=== PATIENT | female | born 1945 | race Caucasian/White ===

== ENCOUNTER 2021-06-16 13:01 | Outpatient (REF) | payer OTHER, SELFPAY ==
--- NOTE | ~2021-06-16 | XR_ITS ---
EXAMINATION: XR FINGER, LEFT CLINICAL INFORMATION: Crush injury to the thumb. COMPARISON: None TECHNIQUE: 3 views of the left hand first digit. FINDINGS: A curvilinear lucency is seen in the distal aspect of the proximal phalanx of the first digit with extension into the distal interphalangeal joint space. Mild degenerative changes are seen in the distal interphalangeal joint of the first digit with mild joint space narrowing and marginal osteophyte formation. The remainder the digits are intact. The carpal bones are normally aligned. The distal radius and ulna are intact with the soft tissues are unremarkable. XR/XR finger LT min 2V IMPRESSION: Acute, nondisplaced intra-articular fracture of the distal aspect of the proximal pharynx of the first digit. Mild first interphalangeal osteoarthritis.
== END 2021-06-16 13:02 | disposition home or self-care (01) ==
LOC: HO.HMGCX 13:01
PROVIDERS: PCP Internal Medicine; Visit Provider Physician Assistant
DX: S67.02XA Crushing injury of left thumb, initial encounter (principal); X58.XXXA Exposure to other specified factors, initial encounter; Y93.9 Activity, unspecified; Y92.9 Unspecified place or not applicable; Y99.9 Unspecified external cause status
CPT/HCPCS: 73140